=== PATIENT | female | born 1960 | race Caucasian/White ===

== ENCOUNTER 2019-04-01 07:09 | Day surgery (SDC) | payer BC ==
[~2019-04-01 07:09] MED LIST: ACETAMINOPHEN 1,000 MG/100 ML BTL IVPB ONE; CEFAZOLIN 2 Gram 2 GM/50 ML BAG IVPB ONE; FAMOTIDINE 20MG TABLET PO ONE; MECLIZINE 25 MG TABLET PO ONE; METOCLOPRAMIDE 10 MG TABLET PO ONE
[2019-04-01] MEDS ORDERED: MIDAZOLAM HCL 2MG/2ML VIAL IV ONE (07:10)
[2019-04-01] MEDS ORDERED: KETOROLAC 30 MG/ML VIAL IVP ONE (07:10)
[2019-04-01] MEDS ORDERED: ONDANSETRON HCL IV 4 MG/2 ML VIAL IVP ONE (07:10)
[2019-04-01] MEDS ORDERED: PROPOFOL 10 MG/ML VIAL IV ONE (07:10)
[2019-04-01] MEDS ORDERED: DEXAMETHASONE 4 MG/ML 1ML VIAL IVP ONE (07:10)
[2019-04-01] MEDS ORDERED: LIDOCAINE 2% MDV (20MG/ML) 20ML VIAL IV ONE (07:10)
[2019-04-01] MEDS ORDERED: DESFLURANE 240 ML BTL INH ONE (07:10)
[2019-04-01] MEDS ORDERED: FENTANYL PF 100MCG/2ML VIAL IV ONE (07:10)
[2019-04-01] MEDS ORDERED: RINGERS SOLUTION,LACTATED 1,000 ML IV ONE (07:35)
[2019-04-01] MEDS ORDERED: BUPIVACAINE 0.5% W/EPI MPF 30 ML VIAL SQ ONE (09:30)
[2019-04-01] MEDS ORDERED: METHYLPREDNISOLONE 40MG/VIAL IU ONE (09:30)
[2019-04-01] MEDS ORDERED: MORPHINE SULFATE (PACU ONLY) 4 MG/ML VIAL IU ONE (09:30)
--- NOTE | 2019-04-03 10:31 | Operative Note ---
DATE OF SURGERY: 04/01/2019 PREOPERATIVE DIAGNOSIS: Internal derangement of the left knee. POSTOPERATIVE DIAGNOSES: 1. Profound fat pad impingement. 2. Small grade 3 chondromalacia of patella. 3. 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 OPERATION: Left knee arthroscopy with intraarticular debridement. STAFF SURGEON: Miko Gonzalez MD ANESTHESIA: General. PREPARATION: Chloraprep. INDIVIDUAL CONSIDERATIONS: None. PROCEDURE: The patient was taken to the operating room and placed supine on the operating room table. The patient had a successful induction with general anesthetic. The left lower extremity was prepped and draped in the usual fashion. The patient had a superolateral inflow cannula placed. Skin was infiltrated with 0.5% Marcaine with epinephrine prior. A small blood-tinged effusion was drained. The knee was inflated with normal saline. An inferomedial and an inferolateral portal were made in a similar fashion. The arthroscope was introduced through the inferolateral portal up into the pouch. The patellofemoral joint basically showed a fairly pronounced fat pad impingement. There was a large piece of fat pad just extending almost long-term into the patellofemoral joint. This was debrided out with a shaver. The notch looked good. There was a small grade 3 change to the patella centrally of questionable significance but this was debrided. I think most of this was fat pad impingement. The gutters were free of any loose bodies or synovitis. Medially, the medial compartment structures were well seen and probed and found to be normal. Laterally, small grade 3 change anteromedially on the tibial plateau, was smoothed with a shaver but not down to bone. It was about the size of a dime. The meniscus and femoral cartilage articularly on the lateral side were normal. The cruciates were normal After irrigation, portals were closed with jose. The knee was then injected with 15 mL of 0.5% Marcaine with epinephrine along with 4 mg of morphine and 40 mg of Depo-Medrol. A sterile bulky compressive dressing was applied. The patient tolerated procedure well. Needle and sponge counts were correct. Estimated blood loss was minimal. She was taken back to recovery in good condition. There were no complications. [facility]
== END 2019-04-01 10:51 | disposition home or self-care (01) ==
LOC: SUR 07:09
PROVIDERS: ATTEND Orthopaedic Surgery
DX: M23.92 Unspecified internal derangement of left knee (principal); M94.262 Chondromalacia, left knee; K21.9 Gastro-esophageal reflux disease without esophagitis; F17.210 Nicotine dependence, cigarettes, uncomplicated
CPT/HCPCS: 29877; 01400; J1885; J2405; J3010; J0690; J2270; J1030; J7120